=== PATIENT | male | born 1960 | race Caucasian/White ===

== ENCOUNTER 2017-12-13 13:25 | Emergency (ER) | payer MEDICAID ==
[~2017-12-13] VITALS: Ht 182.9 cm; Wt 98.4 kg
[~2017-12-13 13:25] MED LIST: CLON1TAB4 PO; FISH1CAP16 PO; GEMF600T3 PO; GLIM2TAB2 PO; HYDR4TAB26 PO; IMIP25TA6 PO; LISI-600 PO; METO100T PO; METR500T8 PO; OMEP20CA4 PO; ONDA4TAB11 PO
[2017-12-13 13:29] VITALS: BP_SYST 125
[2017-12-13] MEDS ORDERED: MORPHINE 4 MG/ML INJ. SYRINGE IM ONE (16:15)
[2017-12-13] MEDS ORDERED: ONDANSETRON 4 MG ODT TAB PO ONE (16:45)
[2017-12-13] MEDS ORDERED: MORPHINE 4 MG/ML INJ. SYRINGE IVP ONE (18:00)
[2017-12-13 18:40] VITALS: BP_SYST 146
== END 2017-12-13 18:40 | disposition home or self-care (01) ==
LOC: SED 13:25
DX: M79.662 Pain in left lower leg (principal); M79.661 Pain in right lower leg; I10 Essential (primary) hypertension; E11.9 Type 2 diabetes mellitus without complications; E78.00 Pure hypercholesterolemia, unspecified; Z88.8 Allergy status to other drugs, medicaments and biological substances; Z79.899 Other long term (current) drug therapy; W17.89XA Other fall from one level to another, initial encounter; Y93.89 Activity, other specified; Y92.89 Other specified places as the place of occurrence of the external cause; Y99.8 Other external cause status
CPT/HCPCS: 93970; 96372; 96374; 99284; J2270; Q0162

== ENCOUNTER 2019-11-17 19:39 | Emergency (ER) | payer MEDICAID ==
[~2019-11-17] VITALS: Ht 182.9 cm; Wt 106.6 kg
[~2019-11-17 19:39] MED LIST changes: +CLON1TAB12 PO; -CLON1TAB4 PO; -GEMF600T3 PO; +GEMF600T5 PO; +METR-154 PO; -METR500T8 PO
[2019-11-17 19:52] VITALS: BP_SYST 144
--- NOTE | 2019-11-17 20:11 | NUR ---
Patient to ER bed 08 to gown for evaluation. Side rails up.
--- NOTE | 2019-11-17 20:13 | NUR ---
ER Dr. Ray at bedside examining patient.
--- NOTE | 2019-11-17 20:13 | NUR ---
PT BROUGHT INTO ED BY . PT IS AWAKE, ALERT, [id number]. PT STATES THAT HE HAS ACUTE ABDOMINAL PAIN 10/10 UPPER QUADRANTS AND R SIDE PRIMARILY. PT STATES HE HAS HISTORY OF ACUTE PANCREATITIS AND FEELS THAT HIS CONDITION IS EXACERBATED. PT STATES HE HAS BEEN TAKING RX DILAUDED AT HOME WITH NO RELIEF. PT DENIES CHEST PAIN, SHORTNESS OF BREATH, DIARRHEA. PT STATES HE HAS ALSO HAD NAUSEA AND VOMITING, BUT IS ABLE TO HOLD DOWN CLEAR LIQUIDS. PT DENIES ANY OTHER MEDICAL COMPLAINT AT THIS TIME. PT RESTING IN ED BED IN MILD DISTRESS. VSS
[2019-11-17] MEDS ORDERED: NACL 0.9% 1,000 ML IV ONE ×2 (20:20→21:52)
[2019-11-17] MEDS ORDERED: DIPHENHYDRAMINE INJ 50 MG/ML VIAL IVP ONE ×2 (20:30→22:00)
[2019-11-17] MEDS ORDERED: fentaNYL CITRATE/PF 100 MCG/2 ML AMP IVP ONE ×2 (20:30→22:00)
[2019-11-17] MEDS ORDERED: ONDANSETRON HCL 4 MG/2 ML VIAL IVP ONE (20:30)
[2019-11-17 20:43] LABS: BILIRUBIN,URINE NEGATIVE (NEGATIVE); CLARITY/URINE CLEAR (CLEAR); COLOR,URINE YELLOW (YELLOW); GLUCOSE,URINE 3+ (NEGATIVE); KETONES,URINE NEGATIVE (NEGATIVE); LEUKOCYTE ESTERASE ,URINE NEGATIVE (NEGATIVE); NITRITE, URINE NEGATIVE (NEGATIVE); PROTEIN URINE NEGATIVE (NEGATIVE); UROBILINOGEN,URINE 0.2 (0.2-1.0)
[2019-11-17 20:44] LABS: BLOOD, URINE TRACE (NEGATIVE)
[2019-11-17 20:49] LABS: BACTERIA,URINE FEW /HPF (None Seen); BASOPHILS # (AUTO) 0.1 K/uL (0.0-0.2); BASOPHILS % (AUTO) 0.6 % (0.0-2.0); EOSINOPHILS # (AUTO) 0.1 K/uL (0.0-0.4); EOSINOPHILS % (AUTO) 0.8 % (0.0-4.0); HEMATOCRIT 42.7 % (36-54); HEMOGLOBIN 14.2 g/dL (14.0-18.0); LYMPHOCYTES # (AUTO) 2.1 K/uL (1.0-5.5); LYMPHOCYTES % (AUTO) 13.9 % (20.5-51.5); MEAN CORPUSCULAR HEMOGLOBIN 31 pg (27-31); MEAN CORPUSCULAR HGB CONC 33 % (32-36); MEAN CORPUSCULAR VOLUME 93 fL (79.0-98.0); MONOCYTES # (AUTO) 1.9 K/uL (0.0-1.0); MONOCYTES % (AUTO) 12.7 % (1.7-9.3); NEUTROPHILS # (AUTO) 10.7 K/uL (1.8-7.7); PLATELET COUNT (AUTO) 375 K/uL (130-430); RED CELL DISTRIBUTION WIDTH 15.6 % (9.0-15.0); WBC,URINE 0-3 /HPF (0-3); WHITE BLOOD COUNT (AUTO) 14.9 K/uL (4.8-10.8)
[2019-11-17 20:54] LABS: CALCIUM 8.7 mg/dL (8.4-11.0); CREATININE 0.93 mg/dL (0.55-1.30); POTASSIUM 3.9 mmol/L (3.5-5.1)
[2019-11-17 20:59] LABS: ALBUMIN 3.3 g/dL (3.4-4.8); TOTAL BILIRUBIN 0.2 mg/dL (0.0-1.0)
--- NOTE | 2019-11-17 22:13 | NUR ---
Pt asleep in ed bed. No acute distress noted. adequate tidal volume, no resp distress.
--- NOTE | 2019-11-17 23:32 | NUR ---
ER Dr. Ray at bedside re-examining patient.
[2019-11-17] MEDS ORDERED: methylPREDNISolone SOD SUCC/PF 62.5 MG/ML VIAL IVP ONE (23:45)
[2019-11-17] MEDS ORDERED: MORPHINE 4 MG/ML INJ. SYRINGE IVP ONE (23:45)
[2019-11-18 00:38] VITALS: BP_SYST 140
== END 2019-11-18 00:38 | disposition home or self-care (01) ==
LOC: SED 19:39
DX: R10.13 Epigastric pain (principal); R11.2 Nausea with vomiting, unspecified; E11.9 Type 2 diabetes mellitus without complications; I10 Essential (primary) hypertension; Z79.899 Other long term (current) drug therapy; Z79.84 Long term (current) use of oral hypoglycemic drugs; Z88.1 Allergy status to other antibiotic agents; Z88.8 Allergy status to other drugs, medicaments and biological substances
CPT/HCPCS: 36415; 80053; 81000; 83690; 85025; 96361; 96374; 96375; 96376; 99283; J1200; J2270; J2405; J2930; J3010; J7030

== ENCOUNTER 2019-12-24 21:41 | Emergency (ER) | payer MEDICAID ==
[~2019-12-24] VITALS: Ht 182.9 cm; Wt 112.5 kg
[2019-12-24 22:15] VITALS: BP_SYST 151
[2019-12-24 23:13] LABS: BILIRUBIN,URINE NEGATIVE (NEGATIVE); CLARITY/URINE CLEAR (CLEAR); COLOR,URINE YELLOW (YELLOW); GLUCOSE,URINE NEGATIVE (NEGATIVE); KETONES,URINE NEGATIVE (NEGATIVE); LEUKOCYTE ESTERASE ,URINE NEGATIVE (NEGATIVE); NITRITE, URINE NEGATIVE (NEGATIVE); PH,URINE 6.5 (5.0-8.0); PROTEIN URINE 1+ (NEGATIVE)
[2019-12-24 23:17] LABS: BLOOD, URINE TRACE (NEGATIVE)
[2019-12-24 23:22] LABS: BACTERIA,URINE FEW /HPF (None Seen); WBC,URINE 0-3 /HPF (0-3)
[2019-12-25] MEDS ORDERED: NACL 0.9% 1,000 ML IV ONE (00:04)
[2019-12-25] MEDS ORDERED: NS 1000 ML IV.SOLN IV ONE (00:15)
[2019-12-25] MEDS ORDERED: cefTRIAXone 1 GM IVPB PREMIX 50 ML IV ONE ×2 (00:15→04:15)
[2019-12-25] MEDS ORDERED: ONDANSETRON HCL 4 MG/2 ML VIAL IVP ONE ×2 (00:15→02:30)
[2019-12-25] MEDS ORDERED: MORPHINE 4 MG/ML INJ. SYRINGE IVP ONE ×3 (00:15→02:30)
[2019-12-25 01:13] LABS: HEMATOCRIT 41.6 % (36-54); HEMOGLOBIN 13.7 g/dL (14.0-18.0); MEAN CORPUSCULAR HEMOGLOBIN 30 pg (27-31); MEAN CORPUSCULAR HGB CONC 33 % (32-36); MEAN CORPUSCULAR VOLUME 92 fL (79.0-98.0); PLATELET COUNT (AUTO) 386 K/uL (130-430); RED BLOOD CELL COUNT(AUTO) 4.53 MIL/uL (4.2-6.2); RED CELL DISTRIBUTION WIDTH 16.1 % (9.0-15.0); WHITE BLOOD COUNT (AUTO) 17.7 K/uL (4.8-10.8)
[2019-12-25 01:26] LABS: CALCIUM 8.4 mg/dL (8.4-11.0); CREATININE 0.89 mg/dL (0.55-1.30)
[2019-12-25 01:28] LABS: INR 1.1 (0.80-1.20)
[2019-12-25 01:33] LABS: TOTAL BILIRUBIN 0.3 mg/dL (0.0-1.0)
[2019-12-25 01:53] LABS: ATYPICAL LYMPHOCYTES % 0 % (0-0); BASOPHILS % (MANUAL) 0 % (0-2); EOSINOPHILS % (MANUAL) 0 % (0-7); LYMPHOCYTES % (MANUAL) 13 % (20-46); MONOCYTES % (MANUAL) 13 % (0-11)
[2019-12-25 05:14] VITALS: BP_SYST 118
== END 2019-12-25 04:20 | disposition left against medical advice (07) ==
LOC: SED 21:41
DX: R10.9 Unspecified abdominal pain (principal); E11.9 Type 2 diabetes mellitus without complications; I10 Essential (primary) hypertension; E11.29 Type 2 diabetes mellitus with other diabetic kidney complication; N28.9 Disorder of kidney and ureter, unspecified; K21.9 Gastro-esophageal reflux disease without esophagitis; E78.00 Pure hypercholesterolemia, unspecified; F12.90 Cannabis use, unspecified, uncomplicated; Z76.5 Malingerer [conscious simulation]; Z86.73 Personal history of transient ischemic attack (TIA), and cerebral infarction without residual deficits; Z86.79 Personal history of other diseases of the circulatory system; Z85.07 Personal history of malignant neoplasm of pancreas; Z79.899 Other long term (current) drug therapy; Z88.6 Allergy status to analgesic agent
CPT/HCPCS: 36415; 71045; 80053; 81000; 82150; 83605; 83690; 84484; 85007; 85027; 85610; 85730; 87040; 96365; 96375; 96376; 99285; J0696; J2270; J2405

== ENCOUNTER 2021-05-09 22:54 | Emergency (ER) | payer MEDICAID ==
[~2021-05-09] VITALS: Ht 182.9 cm; Wt 114.8 kg
[~2021-05-09 22:54] MED LIST changes: -GEMF600T5 PO; +GEMF600T89 PO; +GLIM2TAB PO; -GLIM2TAB2 PO; -LISI-600 PO; +LISI20TA30 PO
[2021-05-09 23:00] VITALS: BP_SYST 147
[2021-05-09] MEDS ORDERED: NACL 0.9% 1,000 ML IV ONE (23:15)
[2021-05-09] MEDS ORDERED: ONDANSETRON HCL 4 MG/2 ML VIAL IVP ONE (23:30)
[2021-05-09] MEDS ORDERED: MORPHINE 2 MG/ML INJ. SYRINGE ONE (23:59)
[2021-05-10 00:14] LABS: CALCIUM 8.6 mg/dL (8.4-11.0); CREATININE 0.88 mg/dL (0.55-1.30); POTASSIUM 3.5 mmol/L (3.5-5.1)
[2021-05-10 00:18] LABS: PROTHROMBIN TIME 10.3 SECS (9.5-12.5)
[2021-05-10 00:20] LABS: ALBUMIN 3.3 g/dL (3.4-4.8); TOTAL BILIRUBIN 0.2 mg/dL (0.0-1.0)
[2021-05-10 00:25] LABS: BASOPHILS # (AUTO) 0.1 K/uL (0.0-0.2); BASOPHILS % (AUTO) 0.3 % (0.0-2.0); EOSINOPHILS # (AUTO) 0.3 K/uL (0.0-0.4); EOSINOPHILS % (AUTO) 1.6 % (0.0-4.0); HEMATOCRIT 45.6 % (36-54); HEMOGLOBIN 15.4 g/dL (14.0-18.0); LYMPHOCYTES # (AUTO) 1.8 K/uL (1.0-5.5); LYMPHOCYTES % (AUTO) 10.5 % (20.5-51.5); MEAN CORPUSCULAR HEMOGLOBIN 32 pg (27-31); MEAN CORPUSCULAR HGB CONC 34 % (32-36); MEAN CORPUSCULAR VOLUME 95 fL (79.0-98.0); MONOCYTES # (AUTO) 1.8 K/uL (0.0-1.0); MONOCYTES % (AUTO) 10.3 % (1.7-9.3); NEUTROPHILS # (AUTO) 13.5 K/uL (1.8-7.7); NEUTROPHILS % (AUTO) 77.3 % (40.0-70.0); PLATELET COUNT (AUTO) 328 K/uL (130-430); RED BLOOD CELL COUNT(AUTO) 4.79 MIL/uL (4.2-6.2); RED CELL DISTRIBUTION WIDTH 14.1 % (9.0-15.0); WHITE BLOOD COUNT (AUTO) 17.5 K/uL (4.8-10.8)
[2021-05-10] MEDS ORDERED: ONDANSETRON HCL 4 MG/2 ML VIAL IVP ONE (01:30)
[2021-05-10 01:36] LABS: BILIRUBIN,URINE NEGATIVE (NEGATIVE); BLOOD, URINE NEGATIVE (NEGATIVE); CLARITY/URINE CLEAR (CLEAR); COLOR,URINE YELLOW (YELLOW); GLUCOSE,URINE NEGATIVE (NEGATIVE); KETONES,URINE NEGATIVE (NEGATIVE); LEUKOCYTE ESTERASE ,URINE NEGATIVE (NEGATIVE); NITRITE, URINE NEGATIVE (NEGATIVE); PH,URINE 6.5 (5.0-8.0); PROTEIN URINE TRACE (NEGATIVE); UROBILINOGEN,URINE 0.2 (0.2-1.0)
[2021-05-10] MEDS ORDERED: cefTRIAXone 1 GM VIAL ONE (01:40)
[2021-05-10] MEDS ORDERED: cefTRIAXone 1 GM in D5W 50 ML IV ONE (01:45)
[2021-05-10] MEDS ORDERED: MORPHINE 4 MG INJ. 4 MG/ML VIAL IVP ONE ×3 (01:45→03:00)
[2021-05-10] MEDS ORDERED: MAG HYDROX/AL HYDROX/SIMETH 30 ML, DICYCLOMINE HCL 20 MG, LIDOCAINE VISCOUS 2% 15ML (PO... PO ONE ×3 (03:15)
[2021-05-10 03:20] VITALS: BP_SYST 147
== END 2021-05-10 03:20 | disposition home or self-care (01) ==
LOC: SED 22:54
DX: K85.90 Acute pancreatitis without necrosis or infection, unspecified (principal); I10 Essential (primary) hypertension; E11.9 Type 2 diabetes mellitus without complications; Z88.8 Allergy status to other drugs, medicaments and biological substances; Z79.899 Other long term (current) drug therapy
CPT/HCPCS: 36415; 74176; 76376; 80053; 81003; 82150; 83605; 83690; 85025; 85610; 96361; 96365; 96375 ×2; 96376; 99284; J0696; J2001; J2270 ×2; J2405; J7030

== ENCOUNTER 2021-11-08 16:40 | Emergency (ER) | payer MEDICAID, SELFPAY | END 2021-11-08 18:00 | disposition left against medical advice (07) | LOC: SED 16:40 | DX: R10.9 Unspecified abdominal pain (principal); Z53.21 Procedure and treatment not carried out due to patient leaving prior to being seen by health care provider ==